=== PATIENT | female | born 1965 | race Caucasian/White ===

== ENCOUNTER 2019-12-10 14:13 | Emergency (ER) | payer OTHER, SELFPAY ==
[~2019-12-10] VITALS: Ht 157.5 cm; Wt 53.6 kg
[2019-12-10] MEDS ORDERED: medical marijuana (14:20)
[2019-12-10] MEDS ORDERED: PERCOCET 5MG/325MG TAB PO ONE (15:15)
[2019-12-10] MEDS ORDERED: IBUPROFEN 400 MG TAB PO ONE (15:15)
--- NOTE | 2019-12-10 15:54 | REP ---
RIGHT KNEE, FOUR VIEWS: Four views of the right knee performed. No acute fracture or dislocation is seen. There appears to be an old fracture of the distal femur, which is healed. There are two metallic screws in the distal femoral shaft. IMPRESSION: No acute fracture or dislocation. Electronically Signed by Zuhair Taylor MD 12/10/2019 04:32 P
[2019-12-10] MEDS ORDERED: NAPR-837 PO (16:01)
[2019-12-10 16:08] VITALS: BP 165/88
== END 2019-12-10 16:13 | disposition home or self-care (01) ==
LOC: M ED 14:13
DX: S80.01XA Contusion of right knee, initial encounter (principal); W22.09XA Striking against other stationary object, initial encounter; Y92.410 Unspecified street and highway as the place of occurrence of the external cause; F17.210 Nicotine dependence, cigarettes, uncomplicated; Z88.8 Allergy status to other drugs, medicaments and biological substances; Z79.899 Other long term (current) drug therapy